=== PATIENT | female | born 1990 | race American Indian/Alaskan Native ===

== ENCOUNTER 2018-02-06 01:45 | Outpatient (CLI) | payer SELFPAY ==
[2018-02-06 02:22] VITALS: BP 104/57
[2018-02-06] MEDS ORDERED: LACTATED RINGERS 500 ML IV ONE (03:45)
[2018-02-06 04:54] LABS: Bacteria,Urine 1+ /HPF (Negative); Bilirubin,Urine NEG (Negative); Blood,Urine NEG (Negative); Color,Urine Yellow (Yellow); Mucus,Urine 1+ /HPF
[2018-02-06 04:58] LABS: Trichomonas,Urine Present /HPF
[2018-02-06] MEDS ORDERED: FLAGYL PO STA (05:15)
--- NOTE | 2018-02-06 09:25 | Ultrasound Report ---
OB ULTRASOUND FOLLOWUP History dating, viability. Technique: Transabdominal ultrasound with Doppler interrogation. Gestation: Single Position: Cephalic Amniotic Fluid: Within normal limits ESTIVEN = not measured cm Placenta: Posterior Placental Grade: 0 Heart Rate: 127 BPM Cervical length: 4.2 cm (Normal > 3 cm) BPD: 5.9 cm = 24 w 0 d HC: 21.6 cm = 23 w 4 d AC: 17.5 cm = 22 w 3 d FL: 4.2 cm = 23 w 4 d HC/AC Ratio: 1.23 Cephalic Index: 84.0 Estimated Weight: 559 grams Clinical age = 16 w 2 d EDC: 07/22/18 US Gest. Age = 23 w 3 d EDC: 06/02/18 IMPRESSION: Viable, single intrauterine as described.
== END 2018-02-06 05:29 | disposition home or self-care (01) ==
LOC: TRG 01:45
PROVIDERS: ATTEND Obstetrics & Gynecology
DX: O62.9 Abnormality of forces of labor, unspecified (principal); O26.892 Other specified pregnancy related conditions, second trimester; M54.9 Dorsalgia, unspecified; Z3A.26 26 weeks gestation of pregnancy
CPT/HCPCS: 59025; 76816; 81001; 87210